=== PATIENT | female | born 1955 | race Caucasian/White ===

== ENCOUNTER 2021-05-21 11:32 | Day surgery (SDC) | payer OTHER ==
[2021-05-20 15:45] LABS: BASOPHILS # (AUTO) 0.2 K/uL (0.00-0.22); BASOPHILS % (AUTO) 3.6 % (0.0-2.0); EOSINOPHILS # (AUTO) 0.3 K/uL (0-0.4); EOSINOPHILS % (AUTO) 5.2 % (0.0-4.0); HEMATOCRIT 32.9 % (36-48); LYMPHOCYTES # (AUTO) 1.8 K/uL (2.5-16.5); LYMPHOCYTES % (AUTO) 30.8 % (20.5-51.1); MEAN CORPUSCULAR HEMOGLOBIN 31 pg (27-31); MEAN CORPUSCULAR HGB CONC 34 g/dL (33-37); MEAN CORPUSCULAR VOLUME 93.8 fL (80-94); MONOCYTES # (AUTO) 0.4 K/uL (0.8-1.0); MONOCYTES % (AUTO) 6.4 % (1.7-9.3); NEUTROPHILS # (AUTO) 3.2 K/uL (1.8-7.7); PLATELET COUNT (AUTO) 212 K/uL (140-450); RED CELL DISTRIBUTION WIDTH 14.2 % (11.6-13.7); WHITE BLOOD COUNT (AUTO) 5.9 K/uL (4.8-10.8)
[2021-05-20 15:52] LABS: APPEARANCE,URINE CLEAR (CLEAR); BILIRUBIN,URINE NEGATIVE (NEGATIVE); BLOOD, URINE 2+ (NEGATIVE); COLOR,URINE YELLOW (YELLOW); LEUKOCYTE ESTERASE ,URINE NEGATIVE (NEGATIVE); NITRITE, URINE NEGATIVE (NEGATIVE); UGLUCOSE NEGATIVE (NEGATIVE)
[2021-05-20 16:43] LABS: RBC,URINE 20-50 /HPF (0-5)
[2021-05-20 16:44] LABS: WBC,URINE 0-5 /HPF (0-5)
[2021-05-20 17:05] LABS: ALBUMIN 4.1 g/dL (3.4-5.0); ANION GAP 10.8 (8-16); CREATININE 0.7 mg/dL (0.6-1.3); POTASSIUM 3.8 mmol/L (3.5-5.1); TOTAL BILIRUBIN 0.6 mg/dL (0.0-1.0)
[~2021-05-21] VITALS: Ht 160 cm; Wt 55.3 kg
[~2021-05-21 11:32] MED LIST: DEXAMETHASONE 4 MG/ML VIAL ONE; GLYCOPYRROLATE 0.2 MG/ML VIAL ONE; KETOROLAC 30 MG/ML VIAL ONE; LIDOCAINE MPF 2% 100 MG/5 ML VIAL INJ ONE; METOCLOPRAMIDE 10 MG/2 ML INJ VIAL ONE; NEOSTIGMINE 1:1000 10 MG/10 ML VIAL ONE; ONDANSETRON 4 MG/2 ML VIAL ONE; PROPOFOL 200 MG/20 ML VIAL IV ONE; ROCURONIUM 50 MG/5 ML VIAL IV ONE; fentaNYL citrate 0.05 MG/ML VIAL ONE
[2021-05-21] MEDS ORDERED: HYDROcodone/APAP 5/325 MG 1 TAB TAB PO PRN (12:05)
[2021-05-21] MEDS ORDERED: ONDANSETRON 4 MG/2 ML VIAL IVP PRN (12:05)
[2021-05-21] MEDS ORDERED: fentaNYL citrate 0.05 MG/ML VIAL IVP PRN (12:05)
[2021-05-21] MEDS ORDERED: MEPERIDINE 25 MG/ML SYR IVP PRN (12:05)
[2021-05-21] MEDS ORDERED: LACTATED RINGERS 1,000 ML IV SCH (12:05)
[2021-05-21] MEDS ORDERED: SEVOFLURANE 250 ML BTL INH ONE (12:50)
[2021-05-21] MEDS ORDERED: ePHEDrine 50 MG/ML VIAL ONE (13:13)
[2021-05-21] MEDS ORDERED: KETOROLAC 30 MG/ML VIAL IVP ONE (13:30)
== END 2021-05-21 15:34 | disposition home or self-care (01) ==
LOC: MDS 11:32 → MMU 11:33 → MDS 15:34
PROVIDERS: ATTEND Obstetrics & Gynecology
DX: N95.0 Postmenopausal bleeding (principal); K21.9 Gastro-esophageal reflux disease without esophagitis; E03.9 Hypothyroidism, unspecified; I10 Essential (primary) hypertension; F32.9 Major depressive disorder, single episode, unspecified; Z79.899 Other long term (current) drug therapy
CPT/HCPCS: 36415; 58558; 80053; 81001; 85025; 86886; 86900; 86901; 87086; J1100; J1885; J2001; J2405; J2704; J2710; J2765; J3010; J3490; J7120

== ENCOUNTER 2023-12-28 20:48 | Emergency (ER) | payer BC, OTHER ==
[~2023-12-28] VITALS: Ht 160 cm; Wt 61.2 kg
[2023-12-28 20:54] VITALS: BP 137/84; PULSE 92; RESP 18; TEMP 97.4; O2SAT 99
[2023-12-28 21:21] VITALS: O2SAT 99
[2023-12-28 21:33] LABS: BASOPHILS % (AUTO) 0.5 % (0.0-2.0); EOSINOPHILS # (AUTO) 0.2 K/uL (0-0.4); EOSINOPHILS % (AUTO) 3.9 % (0.0-4.0); HEMOGLOBIN 13.3 g/dL (12.0-16.0); LYMPHOCYTES # (AUTO) 2.1 K/uL (2.5-16.5); LYMPHOCYTES % (AUTO) 37.8 % (20.5-51.1); MEAN CORPUSCULAR HEMOGLOBIN 32 pg (27-31); MEAN CORPUSCULAR HGB CONC 34 g/dL (33-37); MEAN CORPUSCULAR VOLUME 95.1 fL (80-94); MONOCYTES # (AUTO) 0.4 K/uL (0.8-1.0); MONOCYTES % (AUTO) 7.8 % (1.7-9.3); NEUTROPHILS # (AUTO) 2.8 K/uL (1.8-7.7); PLATELET COUNT (AUTO) 227 K/uL (140-450); RED CELL DISTRIBUTION WIDTH 14.3 % (11.6-13.7); WHITE BLOOD COUNT (AUTO) 5.6 K/uL (4.8-10.8)
[2023-12-28 21:38] VITALS: BP 144/86; PULSE 71; RESP 18; TEMP 97.4; O2SAT 99
[2023-12-28 21:43] LABS: APPEARANCE,URINE CLEAR (CLEAR); BILIRUBIN,URINE NEGATIVE (NEGATIVE); BLOOD, URINE NEGATIVE (NEGATIVE); COLOR,URINE YELLOW (YELLOW); LEUKOCYTE ESTERASE ,URINE NEGATIVE (NEGATIVE); NITRITE, URINE NEGATIVE (NEGATIVE); PROTEIN,URINE NEGATIVE (NEGATIVE); UGLUCOSE NEGATIVE (NEGATIVE); UROBILINOGEN,URINE 0.2 EU/dL (0.2 - 1)
[2023-12-28] MEDS: ONDANSETRON 4 MG/2 ML VIAL IVP ONE (21:43)
[2023-12-28] MEDS: MORPHINE SULFATE 4 MG/ML SYR IVP ONE (21:44)
[2023-12-28 21:50] LABS: ALBUMIN 3.9 g/dL (3.4-5.0); TOTAL BILIRUBIN 0.6 mg/dL (0.0-1.0); TOTAL PROTEIN, SERUM 8.6 g/dL (6.4-8.2)
[2023-12-28 21:54] LABS: ANION GAP 12.4 (8-16); CALCIUM 9.6 mg/dL (8.5-10.1); CARBON DIOXIDE 25.5 mmol/L (21-32); CREATININE 0.8 mg/dL (0.6-1.3)
[2023-12-28 21:57] LABS: POTASSIUM 5.9 mmol/L (3.5-5.1)
[2023-12-28 22:34] LABS: ANION GAP 9.4 (8-16); CALCIUM 9.6 mg/dL (8.5-10.1); CARBON DIOXIDE 26.2 mmol/L (21-32); CREATININE 0.9 mg/dL (0.6-1.3); POTASSIUM 4.6 mmol/L (3.5-5.1)
[2023-12-29] MEDS ORDERED: BEN10 PO (01:18)
[2023-12-29] MEDS ORDERED: MIRABULK PO (01:18)
== END 2023-12-29 01:37 | disposition home or self-care (01) ==
LOC: MED 20:48
DX: R10.32 Left lower quadrant pain (principal); Z79.899 Other long term (current) drug therapy
CPT/HCPCS: 36415; 74177; 80048; 80076; 81003; 83690; 85025; 96374; 96375; 99285; J2270; J2405; Q9967